=== PATIENT | female | born 1975 | race Caucasian/White ===

== ENCOUNTER 2024-02-07 17:49 | Emergency (ER) | payer OTHER ==
[2024-02-07] MEDS ORDERED: FLUORESCEIN NA 1 EA STRIP ONE (18:05)
[2024-02-07] MEDS ORDERED: TETRACAINE 0.5% OPHTH SOLN 2 ML BOTTLE ONE (18:07)
[2024-02-07 18:14] VITALS: BP 118/75; PULSE 83; RESP 16; TEMP 98.2; BMI 27.8
[2024-02-07] MEDS: TETRACAINE 0.5% HCL 0.6ML DROPPER.BOTTLE OU ONE (18:16)
== END 2024-02-07 18:40 | disposition home or self-care (01) ==
LOC: FER 17:49
DX: S05.02XA Injury of conjunctiva and corneal abrasion without foreign body, left eye, initial encounter (principal); W50.4XXA Accidental scratch by another person, initial encounter; Y93.H2 Activity, gardening and landscaping
CPT/HCPCS: 99283-25